=== PATIENT | female | born 1955 | race Caucasian/White ===

== ENCOUNTER 2017-11-11 20:56 | Emergency (ER) | payer BC ==
[2017-11-11 21:03] VITALS: TEMP 98.2
[2017-11-11] MEDS ORDERED: FAMOTIDINE 20 MG/2 ML VIAL IV STA (21:07)
[2017-11-11] MEDS ORDERED: diphenhydrAMINE 50 MG/ML 1 ML VIAL IVP STA (21:07)
[2017-11-11] MEDS ORDERED: methylPREDNISolone SOD SUCCI 125 MG/2 ML VIAL IV STA (21:07)
[2017-11-11] MEDS ORDERED: SODIUM CHLORIDE 0.9% 500 ML IV ONE (21:07)
--- NOTE | 2017-11-11 22:06 | ED ---
General Adult HPI - General Chief complaint: Skin/Abscess/Foreign Body Stated complaint: bee sting/hand swelling & chest tightness Time Seen by Provider: 11/11/17 21:06 Source: patient Mode of arrival: ambulatory Limitations: no limitations - History of Present Illness Initial comments: 62-year-old female patient presents to the emergency department today for evaluation of rash, hand swelling, and throat tightness after being stung by a bee. 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 States that she did use her EpiPen when she started to have chest discomfort. Patient states that she is feeling somewhat better at this time but felt she should come in for evaluation. He denies any current shortness of breath, chest pain, lip, tongue , or throat swelling. She states she does flashes a lump in her throat. States that she has a rash to her bilateral arms and is having swelling to the dorsal aspect of the left hand. Patient denies taking any other medications other than the EpiPen. Patient denies any recent fever, chills, chest pain, abdominal pain, nausea, vomiting, diarrhea, constipation, back pain, numbness, tingling, dizziness, weakness, hematuria, dysuria, urinary urgency, urinary frequency, headache, visual changes, or any other complaints. - Related Data Previous Rx's Medication Instructions Recorded Famotidine [Pepcid] 20 mg PO DAILY #5 tablet 11/11/17 predniSONE 50 mg PO DAILY #5 tablet 11/11/17 Allergies Allergy/AdvReac Type Severity Reaction Status Date / Time bee pollen Allergy Anaphylaxis Verified 11/11/17 21:03 Review of Systems ROS Statement: Those systems with pertinent positive or pertinent negative responses have been documented in the HPI. ROS Other: All systems not noted in ROS Statement are negative. Past Medical History Past Medical History: Cancer History of Any Multi-Drug Resistant Organisms: None Reported Past Surgical History: No Surgical Hx Reported Past Psychological History: No Psychological Hx Reported Smoking Status: Never smoker Past Alcohol Use History: None Reported, Occasional Past Drug Use History: None Reported General Exam Limitations: no limitations General appearance: alert, in no apparent distress, other (This is a well- developed, well-nourished adult female patient in no acute distress. Vital signs upon presentation are temperature 98.2F, pulse 105, respirations 20, blood pressure 136/89, pulse ox 98% on room air.) Eye exam: Present: normal appearance, PERRL, EOMI. Absent: scleral icterus, conjunctival injection, periorbital swelling ENT exam: Present: normal exam, normal oropharynx, mucous membranes moist Respiratory exam: Present: normal lung sounds bilaterally. Absent: respiratory distress, wheezes, rales, rhonchi, stridor Cardiovascular Exam: Present: normal rhythm, tachycardia, normal heart sounds. Absent: systolic murmur, diastolic murmur, rubs, gallop, clicks GI/Abdominal exam: Present: soft, normal bowel sounds. Absent: distended, tenderness, guarding, rebound, rigid Extremities exam: Present: full ROM, tenderness (Dorsal aspect left hand), normal capillary refill, other (Patient has swelling and erythema to the dorsal aspect of the left hand. Radial pulses 2+ equal bilaterally.). Absent: normal inspection, pedal edema, joint swelling, calf tenderness Neurological exam: Present: alert, oriented X3, CN II-XII intact Psychiatric exam: Present: normal affect, normal mood Skin exam: Present: warm, dry, intact, normal color, rash (Patient has urticarial type rash to the bilateral forearms.) Course Vital Signs 11/11/17 11/11/17 11/11/17 21:01 21:52 22:24 Temperature 98.2 F Pulse Rate 105 H 84 83 Respiratory 20 18 17 Rate Blood Pressure 136/89 131/95 142/95 O2 Sat by Pulse 98 95 100 Oximetry 11/12/17 00:12 Temperature 98.2 F Pulse Rate 77 Respiratory 18 Rate Blood Pressure 134/78 O2 Sat by Pulse 98 Oximetry Medical Decision Making - Medical Decision Making 62-year-old female patient presented to the emergency department today for evaluation after being stung by a bee. Physical examination did reveal hives to the bilateral arms, soft tissue swelling over the dorsal aspect of the left hand. Lungs are clear to auscultation with good air movement. Respirations are even and unlabored. Patient did self administer epinephrine prior to arrival. She did receive the Solu Medrol, Pepcid, and Benadryl once IV was initiated. Patient was monitored for a total of 3 hours, had no worsening in her symptoms. States that she was feeling better. She'll be discharged with a prescription for prednisone and Pepcid. She is instructed to continue taking Benadryl. She is instructed to follow-up with her primary care physician for recheck in 1-2 days. Return parameters discussed in detail. She verbalizes understanding and agrees with this plan. Disposition Clinical Impression: Allergic reaction to bee sting Disposition: HOME SELF-CARE Condition: Good Instructions: General Allergic Reaction (ED) Additional Instructions: Continue taking Benadryl every 6 hours as needed for symptom relief. Complete prescriptions of prednisone and Pepcid. Follow-up with your primary care physician for recheck in 1-2 days. Return here immediately if her symptoms return, or if you develop any new symptoms. Prescriptions: Famotidine [Pepcid] 20 mg PO DAILY #5 tablet predniSONE 50 mg PO DAILY #5 tablet Is patient prescribed a controlled substance at d/c from ED?: No Referrals: Winston Johnson DO [Primary Care Provider] - 1-2 days Time of Disposition: 23:58
[2017-11-12 00:13] VITALS: BP 134/78; PULSE 77; RESP 18
== END 2017-11-12 00:13 | disposition home or self-care (01) ==
LOC: EC 20:56
DX: T63.441A Toxic effect of venom of bees, accidental (unintentional), initial encounter (principal); Z85.9 Personal history of malignant neoplasm, unspecified; Z91.030 Bee allergy status
CPT/HCPCS: 99283; 96374; 96375 ×2; J1200; J2930

== ENCOUNTER → 2023-02-15 | Outpatient (CLI) | payer MEDICARE ==
--- NOTE | 2023-02-15 11:12 | XR ---
EXAMINATION TYPE: XR chest 2V DATE OF EXAM: 02/15/2023 COMPARISON: NONE TECHNIQUE: PA and lateral views submitted. HISTORY: Cough FINDINGS: The lungs are clear and there is no pneumothorax, pleural effusion, or focal pneumonia. Heart size normal and no overt failure. Osseous structures demonstrate hypertrophic and degenerative changes of the spine. Hyperinflation suggests COPD. Biapical pleural thickening. Prominence of pulmonary arterie s suggest pulmonary arterial hypertension. IMPRESSION: 1. No acute process. Correlate for COPD.
== END | disposition home or self-care (01) ==
LOC: RADXRMAIN 10:56
PROVIDERS: ATTEND Family Medicine
DX: J44.9 Chronic obstructive pulmonary disease, unspecified (principal); R05.9 Cough, unspecified
CPT/HCPCS: 71046